=== PATIENT | female | born 1950 ===

== ENCOUNTER 2021-07-10 05:43 | Observation (INO) ==
[2021-07-10] MEDS ORDERED: Buffered Lidocaine 1% SYRIN 1 ml INTRADERM ONE ×2 (06:00→07:11)
[2021-07-10] MEDS ORDERED: Lactated Ringers 1000 ml BAG 1,000 ML IV SCH (06:00)
[2021-07-10] MEDS ORDERED: Dexamethasone IV 4 MG/ML VIAL 1 ml VIAL IV SLOW PU ONE (06:13)
[2021-07-10] MEDS ORDERED: Famotidine IV 10 MG/ML 2 ml VIAL (20 mg) IV SLOW PU ONE (06:14)
[2021-07-10] MEDS ORDERED: ceFAZolin 2 GM in NS PREMIX 2 GM/100 ML BAG IVPB ONE (06:15)
[2021-07-10] MEDS ORDERED: Dexamethasone IV 4 MG/ML VIAL 1 ml VIAL ONE (06:37)
[2021-07-10] MEDS ORDERED: Famotidine IV 10 MG/ML 2 ml VIAL (20 mg) ONE (06:37)
[2021-07-10 06:54] LABS: Potassium 3.8 mmol/L (3.5-5.0)
[2021-07-10] MEDS ORDERED: fentaNYL 100 mcg/2 ml 50 MCG/ML VIAL ONE ×2 (07:15→12:33)
[2021-07-10] MEDS ORDERED: Lidocaine 2% PF 5 ML VIAL ONE (07:16)
[2021-07-10] MEDS ORDERED: Propofol 10 MG/ML 20 ML BTL ONE (07:16)
[2021-07-10] MEDS ORDERED: Midazolam 5 mg/5 ml VIAL 1 mg/ml 5 ml VIAL (5 mg) ONE (07:16)
[2021-07-10] MEDS ORDERED: Rocuronium 50 mg VIAL 10 mg/ml 5 ml VIAL (50 mg) ONE (07:17)
[2021-07-10] MEDS ORDERED: Remifentanil 2 MG VIAL ONE ×2 (07:20→10:38)
[2021-07-10] MEDS ORDERED: Propofol 2,000 MG/200 ML BTL ONE (07:27)
[2021-07-10] MEDS ORDERED: Lidocaine 1% w EPI 1:200,000 SDV 30 ML VIAL ONE (07:28)
[2021-07-10] MEDS ORDERED: ceFAZolin VIAL VIAL ONE (07:28)
[2021-07-10] MEDS ORDERED: Bacitracin OINTMENT TUBE ONE (07:28)
[2021-07-10] MEDS ORDERED: Prochlorperazine 5 mg/ml 2 ml VIAL (10 mg) IV PRN (07:45)
[2021-07-10] MEDS ORDERED: HYDROcodone/ACETAMIN 5/325 mg TAB PO PRN ×2 (07:45→13:50)
[2021-07-10] MEDS ORDERED: oxyCODONE/Acetamin 5/325 mg TAB PO PRN (07:45)
[2021-07-10] MEDS ORDERED: Naloxone 0.4 mg VIAL 0.4 mg/ml 1 ml VIAL IV PRN (07:45)
[2021-07-10] MEDS ORDERED: Morphine 4 MG/ML VIAL (1 ml) IV PRN (07:45)
[2021-07-10] MEDS ORDERED: Phenylephrine 40 mcg/mL 10mL (400mcg) SYRINGE ONE (08:38)
[2021-07-10] MEDS ORDERED: EPHEDrine (Pressors) 50 MG/ML VIAL ONE ×2 (08:54→10:31)
[2021-07-10] MEDS ORDERED: Phenylephrine IV 10 MG/ML 1 ml VIAL ONE (08:56)
[2021-07-10] MEDS ORDERED: Glycopyrrolate IV 0.2 MG/ML 1 ML VIAL ONE (09:04)
[2021-07-10] MEDS ORDERED: Propofol 10 mg/ml 100 ML BTL 100 ML ONE (11:18)
[2021-07-10] MEDS ORDERED: Ondansetron 4 mg VIAL 2 MG/ML 2 ml VIAL ONE (13:03)
[2021-07-10] MEDS ORDERED: Ondansetron 4 mg VIAL 2 MG/ML 2 ml VIAL IV PRN (13:50)
[2021-07-10] MEDS ORDERED: fentaNYL 250 mcg/5 ml 50 MCG/ML 5 ml VIAL (250 MCG) ONE (13:56)
[2021-07-10] MEDS: fentaNYL 100 mcg/2 ml 50 MCG/ML VIAL IV PRN ×4 (13:56→14:11)
[2021-07-10] MEDS ORDERED: oxyCODONE/Acetamin 5/325 mg TAB ONE (14:52)
[2021-07-10] MEDS: HYDROcodone/ACETAMIN 5/325 mg TAB PO PRN (17:18)
[2021-07-10] MEDS: DULoxetine DR 60 mg CAP PO SCH (21:37)
[2021-07-11] MEDS: HYDROcodone/ACETAMIN 5/325 mg TAB PO PRN ×3 (00:06→15:24)
[2021-07-11] MEDS: DULoxetine DR 60 mg CAP PO SCH (09:30)
[2021-07-11 11:18] VITALS: BP 154/98
== END 2021-07-11 15:40 | disposition home or self-care (01) ==
LOC: AA 05:43 → INTOOBSV 05:43 → SSU 15:28
PROVIDERS: ADMIT Neurological Surgery; ATTEND Neurological Surgery
PROC: O.NEPCD (2021-07-10 07:30)